=== PATIENT | male | born 1955 | race Caucasian/White ===

== ENCOUNTER 2020-03-05 18:42 | Emergency (ER) | payer MEDICAID, SELFPAY ==
[2020-03-05] VITALS (22 sets, daily range): BP systolic 115–243; BP diastolic 85–172; PULSE 107–160; RESP 12–37; O2SAT 86–99; BMI 25.1
--- NOTE | 2020-03-05 18:45 | CTR_ITS ---
PROCEDURE INFORMATION: Exam: CT Head Without Contrast Exam date and time: 03/05/2020 6:45 PM Age: 65 years old Clinical indication: Altered mental status/memory loss; Confusion or disorientation; Additional info: Symptoms of acute stroke TECHNIQUE: Imaging protocol: Computed tomography of the head without contrast. Radiation optimization: All CT scans at this facility use at least one of these dose optimization techniques: automated exposure control; mA and/or kV adjustment per patient size (includes targeted exams where dose is matched to clinical indication); or iterative reconstruction. Other technique: STROKE PROTOCOL was implemented. COMPARISON: CT head wo con* [id number] 12/03/2017 7:23 PM RADIATION DOSE METRICS: Total DLP (mGy-cm): 559.17 FINDINGS: Brain: There is focal encephalomalacia in the left insular cortex and in the left internal capsule region in keeping with chronic infarct which is not changed compared with 12/03/2017. There is no intracranial mass, hemorrhage, or edema. Ventricles: Normal. No ventriculomegaly. Bones/joints: Unremarkable. No acute fracture. Sinuses: Visualized sinuses are unremarkable. No fluid levels. Mastoid air cells: Visualized mastoid air cells are well aerated. Soft tissues: Unremarkable. CT/CT head wo con* [id number] IMPRESSION: 1. 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 2. No acute intracranial finding. ASSESSMENT: ASPECTS ([place] Stroke Program Early CT Score) is 10. Radiation Dose CTDIVOL = (mGy): DLP = 559.17 (mGy-cm)
--- NOTE | 2020-03-05 18:45 | ECG_ITS ---
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 Measurements Intervals [place] Rate: 145 P: [place]: -1 QRS: 72 QRSD: 95 T: -34 QT: 311 QTc: 484 Interpretive Statements ATRIAL FIBRILLATION WITH RAPID VENTRICULAR RESPONSE NONSPECIFIC ST & T-WAVE ABNORMALITY Compared to ECG 03/23/2019 05:52:33 No significant changes Electronically Signed On 03-05-2020 19:08:42 CDT by Isaiah Singleton M.D. [email or web address]
--- NOTE | 2020-03-05 18:51 | XR_ITS ---
WS: [id number] Portable AP upright chest, 03/05/2020, 1954 hours. Clinical Data: ams Comparison: Portable chest, 03/22/2019. Findings: Patchy opacity in the right upper lobe may indicate acute pneumonia. The lower lobes are cl ear. The pulmonary vascularity is minimally increased. The heart is slightly enlarged. No nodules, ma sses or effusions are seen. There is deformity of the distal right clavicle from an old injury. 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 XR/XR chest 1V [id number] Impression: 1. Patchy opacity in right upper lobe which could indicate acute pneumonia. 2. Mild pulmonary vascular congestion. 3. Cardiomegaly.
--- NOTE | 2020-03-05 18:59 | ED_ITS ---
HPI - Weakness General: Chief complaint: Neuro Symptoms/Deficit Stated complaint: Possible stroke Time Seen by Provider: 03/05/20 18:51 History of Present Illness: HPI Narrative: 65-year-old male with a history of stroke and atrial fibrillation. He presents with decreased responsiveness. Around 5 PM, his significant other left to go to the store. She returned between 6 and 630 to find him in the floor. He was not really talking or responding well. He was breathing and had a pulse. EMS was called. On arrival here he presents with a right-sided gaze left-sided weakness/paralysis, and tonic-clonic movements to the right upper extremity. He groans at times. He does not answer questions. His eyes are open. MD Complaint: focal weakness Onset (ago): hour(s) Duration: constant Location: LUE Migration: none Severity: severe Relieving factors: none Exacerbating factors: none Review of Systems General: Reports: ROS unobtainable due to medical condition Physical Exam Const: GENERAL APPEARANCE: ill appearing and diaphoretic HENMT: COMMON NORMALS: normocephalic, external ears normal and Normal external nose present HEAD & SCALP: normocephalic NOSE: Normal external nose present and No nasal discharge present EXTERNAL EAR: Yes external ears normal Eye: COMMON NORMALS: conjunctivae normal EYELID: eyelids normal CONJUNCTIVA: Yes conjunctivae normal Neck/C-Spine: GENERAL: No tracheal deviation Chest: COMMONS NORMALS: normal inspection of the chest CHEST: No tenderness Resp: COMMON NORMALS: clear to auscultation bilaterally EFFORT & INSPECTION: No tachypneic, No respiratory distress, No retractions, No uses accessory muscles and No tracheal deviation AUSCULTATION: clear to auscultation bilaterally, no rhonchi, no wheezes and lung sounds not diminished Cardio: RATE: tachycardic RHYTHM: abnormal rhythm irregularly irregular HEART SOUNDS: no murmurs PERIPHERAL PULSES: radial pulses present GI: INSPECTION: No abdominal distension AUSCULTATION: No Hyperactive bowel sounds present and No Hypoactive bowel sounds present PALPATION: No Rigid due to palpation PERCUSSION: no dullness to percussion and no tympanic to percussion Neuro: KARLA COMA SCALE: document GCS findings Karla coma scale eye opening: Spontaneous [place] coma scale verbal response: Sounds [place] coma scale motor response: Abnormal flexion Karla coma scale total score: 9 SENSORIUM/ORIENTATION: Yes obtunded SPEECH: Total aphasia GAIT: Yes Unable to assess gait SENSORY EXAM: Yes other (Left lower extremity and right lower extremity flex to noxious stimuli. Left upper extremity is flaccid even to painful stimuli. Right upper extremity withdraws.) MOTOR EXAM: Other motor observations present (Left upper extremity flaccid. Tonic-clonic movements in the right upper extremity.) Skin: COMMON NORMALS: no rashes or lesions noted GENERAL SKIN EXAM: no rashes or lesions noted Procedures Intubation Time out performed: No sedative: Etomidate Mg Given: 30 paralytic: Succinylcholine Mg Given: 200 Laryngoscope: Jose Assist Device Used: fiber optic device ET Tube Size: 7 ET Tube Uncuffed: No Tube Secured Depth (cm): 22 Tube Secured Location: lips Tube Placement Confirmation: visualized tube passing through cords, equal breath sounds bilaterally and confirmation by capnometry Patient Tolerated Procedure: well Intubation Complications: difficult intubation (Patient was a difficult airway, with a swollen larynx, and anterior positioning. First attempt failed, second attempt with video laryngoscope was successful. There was mild airway bleeding present.) Course Consultations: Consultation #1: Bret Neurology [facility] stroke team Consultation #2: Roger, neurology [facility] Consultation #3: Sharad, neuro ICU [facility] Vital Signs: Vital signs: Vital Signs Pulse Rate 98 03/06/20 00:59 Respiratory Rate 12 03/06/20 00:59 Blood Pressure 128/89 03/06/20 00:59 Pulse Oximetry 98 03/06/20 00:59 MDM - Weakness MDM Narrative: Medical decision making narrative: This is a 65-year-old male with a history of atrial fibrillation and stroke. He presents not responding to verbal stimuli, flexing and withdrawing to noxious stimuli. His left upper ex tremity is flaccid. His right upper extremity exhibits tonic-clonic motion. He has a right gaze preference that has been unrelenting. He withdraws with flexion to noxious stimuli of both lower extremities. By CT, he has old strokes in the left hemisphere of his brain, which his significant other says causes him mild right-sided weakness usually. He is exhibiting these tonic-clonic movements on the right, and has a right gaze preference consistent with possible seizure with a focus in the left brain. His left side that was flaccid, which is unexplained at this point. CT reveals no new stroke. No hemorrhage or mass. 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 No definite acute occlusion. Stroke alert was called from the field on this gentleman. We spoke with neurology at [facility] who covers our stroke service in the ER. The patient is on Eliquis, so TPA was not an option. It is believed more to be symptoms of seizure than stroke at this point. The seizure could have a focus around the old stroke in the left brain. Keppra was advised. He was loaded with 1 g, then another gram of Keppra. We do not have neurology services in this hospital at this point. This patient is requiring an ICU level of care. We talked to Dr. Duran from neurology at [facility] in [place], as well as Dr. Orourke in the neurotrauma ICU. He advised intubation in this patient for airway protection for transport. The patient was intubated, although with mild difficulty his larynx was swollen, only allowing a 7 tube. He is done well on the ventilator. He is on a Cardizem drip, with heart rate holding in the low 100s. His blood pressure currently is 120/90. He is on propofol, and again has been loaded with 2 g of Keppra for status epilepticus. He will go by air. Lab Data: Labs: Lab Results 03/05/20 03/05/20 03/05/20 Range/Units 18:57 18:57 18:57 WBC 10.5 H (4.0-10.0) 10^3/ uL RBC 5.16 (4.1-5.3) 10^6/u L Hgb 17.0 H (11.7-16.6) g/dL Hct 52.2 H (42.0-52.0) % MCV 101.2 H (80-94) fL MCH 32.9 (28.0-34.0) pg MCHC 32.6 (30.0-36.0) g/dL RDW 13.0 (12.1-15.1) % Plt Count 240 (130-400) 10^3/c mm MPV 11.6 H (7.4-10.4) fL Neut % (Auto) 73.2 % Lymph % (Auto) 18.8 % Waldo % (Auto) 5.5 % Eos % (Auto) 1.0 % Baso % (Auto) 0.9 % Neut # (Auto) 7.69 (1.8-7.7) 10^3/u L Lymph # (Auto) 2.0 (0.8-4.8) 10^3/u L Waldo # (Auto) 0.6 (0.2-0.9) 10^3/u L Eos # (Auto) 0.1 (0.0-0.8) 10^3/u L Baso # (Auto) 0.1 (0.0-0.1) 10^3/u L Nucleated RBC % (a uto) 0 % Nucleated RBCs # 0.0 /100WBC PT 14.30 H (10.5-13.3) SECO NDS INR 1.08 (0.8-1.2) APTT 29.3 (23.9-36.7) SECO NDS Specimen Type Sample Site ABG pH (7.35-7.45) ABG pCO2 (35-45) mmHg ABG pO2 (80.0-100.0) mmH g ABG HCO3 (22-26) mmol/L ABG Base Excess (-2.0-2.0) mmol/ L Lefty Test Hematocrit (42-52) % [employer] Vice President ID Sodium 134 L (136-145) mmol/L Potassium 4.5 (3.5-5.1) mmol/L Chloride 96 L (98-107) mmol/L Carbon Dioxide 23 (22-29) mmol/L Anion Gap 19.5 H (5-19) BUN 10 (8-23) mg/dL Creatinine 0.8 (0.7-1.2) mg/dL GFR Calculation 97.0 (90-130) mL/min Glucose 264 H (65-115) mg/dL POC Glucose (70-110) mg/dL Calculated Osmolal ity 283 L (285-295) mOsm/k g Calcium 9.2 (8.5-10.5) mg/dL Magnesium 1.8 (1.7-2.3) mg/dL Total Bilirubin 0.3 (0.15-1.2) mg/dL AST 120 H (0-40) U/L ALT 129 H (0-41) U/L Alkaline Phosphata se 116 (40-130) IU/L Creatine Kinase 55 (39-308) U/L Troponin T Baselin e (0-15) ng/L Troponin T 120 Min pooja (0-15) ng/L Delta Troponin T (0-10) ABS# Total Protein 7.5 (6.6-8.7) g/dL Albumin 3.8 (3.5-5.2) g/dL Globulin 3.7 (1.3-4.6) g/dL Urine Color (Yellow) Urine Appearance (CLEAR) Urine pH (5-7) Ur Specific Gravit y (1.005-1.030) Urine Protein (Negative) Urine Glucose (UA) (Normal) Urine Ketones (Negative) Urine Blood (Negative) Urine Nitrate (Negative) Urine Bilirubin (NEGATIVE) Urine Urobilinogen (Negative) mg/dL Ur Leukocyte Aide ase (Negative) Urine RBC (0-2) /hpf Urine WBC (0-5) /hpf Ur Squamous Epith Cells (0-5) Ur Transition Epit h Cell /hpf Amorphous Sediment Urine Bacteria (NONE) Hyaline Casts Urine Mucus Urine Opiates Scre en (Negative) ng/mL Ur Barbiturates Sc reen (Negative) ng/mL Ur Phencyclidine S crn (Negative) ng/mL Ur Amphetamines Sc reen (Negative) ng/mL U Benzodiazepines Scrn (Negative) ng/mL Urine Cocaine Scre en (Negative) ng/mL U Marijuana (THC) Screen (Negative) ng/mL 03/05/20 03/05/20 03/05/20 Range/Units 18:57 19:05 19:45 WBC (4.0-10.0) 10^3/ uL RBC (4.1-5.3) 10^6/u L Hgb (11.7-16.6) g/dL Hct (42.0-52.0) % MCV (80-94) fL MCH (28.0-34.0) pg MCHC (30.0-36.0) g/dL RDW (12.1-15.1) % Plt Count (130-400) 10^3/c mm MPV (7.4-10.4) fL Neut % (Auto) % Lymph % (Auto) % Waldo % (Auto) % Eos % (Auto) % Baso % (Auto) % Neut # (Auto) (1.8-7.7) 10^3/u L Lymph # (Auto) (0.8-4.8) 10^3/u L Waldo # (Auto) (0.2-0.9) 10^3/u L Eos # (Auto) (0.0-0.8) 10^3/u L Baso # (Auto) (0.0-0.1) 10^3/u L Nucleated RBC % (a uto) % Nucleated RBCs # /100WBC PT (10.5-13.3) SECO NDS INR (0.8-1.2) APTT (23.9-36.7) SECO NDS Specimen Type Arterial Sample Site Radial, left ABG pH 7.45 (7.35-7.45) ABG pCO2 33.3 L (35-45) mmHg ABG pO2 58.3 L (80.0-100.0) mmH g ABG HCO3 22.9 (22-26) mmol/L ABG Base Excess -0.3 (-2.0-2.0) mmol/ L Lefty Test Pos Hematocrit 53.6 H (42-52) % [employer] Vice President ID ellpe Sodium (136-145) mmol/L Potassium (3.5-5.1) mmol/L Chloride (98-107) mmol/L Carbon Dioxide (22-29) mmol/L Anion Gap (5-19) BUN (8-23) mg/dL Creatinine (0.7-1.2) mg/dL GFR Calculation (90-130) mL/min Glucose (65-115) mg/dL POC Glucose 228 (70-110) mg/dL Calculated Osmolal ity (285-295) mOsm/k g Calcium (8.5-10.5) mg/dL Magnesium (1.7-2.3) mg/dL Total Bilirubin (0.15-1.2) mg/dL AST (0-40) U/L ALT (0-41) U/L Alkaline Phosphata se (40-130) IU/L Creatine Kinase (39-308) U/L Troponin T Baselin e 9 (0-15) ng/L Troponin T 120 Min pooja (0-15) ng/L Delta Troponin T (0-10) ABS# Total Protein (6.6-8.7) g/dL Albumin (3.5-5.2) g/dL Globulin (1.3-4.6) g/dL Urine Color (Yellow) Urine Appearance (CLEAR) Urine pH (5-7) Ur Specific Gravit y (1.005-1.030) Urine Protein (Negative) Urine Glucose (UA) (Normal) Urine Ketones (Negative) Urine Blood (Negative) Urine Nitrate (Negative) Urine Bilirubin (NEGATIVE) Urine Urobilinogen (Negative) mg/dL Ur Leukocyte Aide ase (Negative) Urine RBC (0-2) /hpf Urine WBC (0-5) /hpf Ur Squamous Epith Cells (0-5) Ur Transition Epit h Cell /hpf Amorphous Sediment Urine Bacteria (NONE) Hyaline Casts Urine Mucus Urine Opiates Scre en (Negative) ng/mL Ur Barbiturates Sc reen (Negative) ng/mL Ur Phencyclidine S crn (Negative) ng/mL Ur Amphetamines Sc reen (Negative) ng/mL U Benzodiazepines Scrn (Negative) ng/mL Urine Cocaine Scre en (Negative) ng/mL U Marijuana (THC) Screen (Negative) ng/mL 03/05/20 03/05/20 03/05/20 Range/Units 20:05 20:05 21:00 WBC (4.0-10.0) 10^3/ uL RBC (4.1-5.3) 10^6/u L Hgb (11.7-16.6) g/dL Hct (42.0-52.0) % MCV (80-94) fL MCH (28.0-34.0) pg MCHC (30.0-36.0) g/dL RDW (12.1-15.1) % Plt Count (130-400) 10^3/c mm MPV (7.4-10.4) fL Neut % (Auto) % Lymph % (Auto) % Waldo % (Auto) % Eos % (Auto) % Baso % (Auto) % Neut # (Auto) (1.8-7.7) 10^3/u L Lymph # (Auto) (0.8-4.8) 10^3/u L Waldo # (Auto) (0.2-0.9) 10^3/u L Eos # (Auto) (0.0-0.8) 10^3/u L Baso # (Auto) (0.0-0.1) 10^3/u L Nucleated RBC % (a uto) % Nucleated RBCs # /100WBC PT (10.5-13.3) SECO NDS INR (0.8-1.2) APTT (23.9-36.7) SECO NDS Specimen Type Sample Site ABG pH (7.35-7.45) ABG pCO2 (35-45) mmHg ABG pO2 (80.0-100.0) mmH g ABG HCO3 (22-26) mmol/L ABG Base Excess (-2.0-2.0) mmol/ L Lefty Test Hematocrit (42-52) % [employer] Vice President ID Sodium (136-145) mmol/L Potassium (3.5-5.1) mmol/L Chloride (98-107) mmol/L Carbon Dioxide (22-29) mmol/L Anion Gap (5-19) BUN (8-23) mg/dL Creatinine (0.7-1.2) mg/dL GFR Calculation (90-130) mL/min Glucose (65-115) mg/dL POC Glucose (70-110) mg/dL Calculated Osmolal ity (285-295) mOsm/k g Calcium (8.5-10.5) mg/dL Magnesium (1.7-2.3) mg/dL Total Bilirubin (0.15-1.2) mg/dL AST (0-40) U/L ALT (0-41) U/L Alkaline Phosphata se (40-130) IU/L Creatine Kinase (39-308) U/L Troponin T Baselin e (0-15) ng/L Troponin T 120 Min pooja 7.16 (0-15) ng/L Delta Troponin T -1.84 L (0-10) ABS# Total Protein (6.6-8.7) g/dL Albumin (3.5-5.2) g/dL Globulin (1.3-4.6) g/dL Urine Color Yellow (Yellow) Urine Appearance Hazy A (CLEAR) Urine pH 5 (5-7) Ur Specific Gravit y 1.010 (1.005-1.030) Urine Protein 1+ H (Negative) Urine Glucose (UA) 4+ H (Normal) Urine Ketones 1+ H (Negative) Urine Blood 3+ H (Negative) Urine Nitrate Negative (Negative) Urine Bilirubin Neg (NEGATIVE) Urine Urobilinogen 1 H (Negative) mg/dL Ur Leukocyte Aide ase Negative (Negative) Urine RBC 25-40 H (0-2) /hpf Urine WBC 0-4 H (0-5) /hpf Ur Squamous Epith Cells 5-10 H (0-5) Ur Transition Epit h Cell 0-4 /hpf Amorphous Sediment Not Reportable Urine Bacteria 1+ H (NONE) Hyaline Casts 15-25 H Urine Mucus 2+ Urine Opiates Scre en Negative (Negative) ng/mL Ur Barbiturates Sc reen Negative (Negative) ng/mL Ur Phencyclidine S crn Negative (Negative) ng/mL Ur Amphetamines Sc reen Negative (Negative) ng/mL U Benzodiazepines Scrn Positive H (Negative) ng/mL Urine Cocaine Scre en Negative (Negative) ng/mL U Marijuana (THC) Screen Negative (Negative) ng/mL Critical Care Time Critical Care Time: Critical Care Time: Yes Total Critical Care Time: 60 Attestation: This case had a high probability of a clinically significant, sudden, or life threatening deterioration of this patient's condition which required my full and direct attention, intervention and personal management. Discharge Plan Discharge Prescriptions: No Action carvedilol 12.5 mg tablet RF: 0 Acid Filter Press Tender Head (omeprazole) 20 mg 20 mg PO DAILY RF: 0 DOK 100 mg 100 mg PO BID RF: 0 ProAir HFA 90 mcg 2 puff inhalation DIRECTED RF: 0 Flovent HFA 220 mcg 2 puff inhalation DIRECTED RF: 0 metoprolol tartrate 100 mg 100 mg PO BID RF: 0 metformin 500 mg 500 mg PO DAILY RF: 0 tamsulosin 0.4 mg capsule 0.4 mg PO DAILY RF: 0 digoxin 250 mcg (0.25 mg) Tablet 250 mcg PO DAILY RF: 0 Eliquis 5 mg Tablet 5 mg PO BID RF: 0 Referrals: Jose Enrique Salgado [Primary Care Provider] - Discharge Date/Time: 03/06/20 01:09 Coding Level of Care Code ED And Rescue Fire Fighter Crash Fire for Eltong Fwd Exam Comprehensive
[2020-03-05 19:02] LABS: Basophils # 0.1 10^3/uL (0.0-0.1); Basophils % 0.9 %; Eosinophils # 0.1 10^3/uL (0.0-0.8); Hematocrit 52.2 % (42.0-52.0); Lymphocytes % 18.8 %; Mean Corpuscular HGB Conc 32.6 g/dL (30.0-36.0); Mean Corpuscular Hemoglobin 32.9 pg (28.0-34.0); Mean Corpuscular Volume 101.2 fL (80-94); Mean Platelet Volume 11.6 fL (7.4-10.4); Monocytes # 0.6 10^3/uL (0.2-0.9); Monocytes % 5.5 %; Neutrophils # 7.69 10^3/uL (1.8-7.7); Neutrophils % 73.2 %; Nucleated Red Blood Cells % 0 %; Platelet Count 240 10^3/cmm (130-400); Red Blood Count 5.16 10^6/uL (4.1-5.3); White Blood Count 10.5 10^3/uL (4.0-10.0)
[2020-03-05 19:07] LABS: Glucose Point of Care 228 mg/dL (70-110)
[2020-03-05 19:10] LABS: INR 1.08 (0.8-1.2)
[2020-03-05 19:11] LABS: Partial Thromboplastin Time 29.3 SECONDS (23.9-36.7)
--- NOTE | 2020-03-05 19:17 | CTR_ITS ---
PROCEDURE INFORMATION: Exam: CT Angiography Head With Contrast Exam date and time: 03/05/2020 7:19 PM Age: 65 years old Clinical indication: Other: AMS TECHNIQUE: Imaging protocol: Computed tomography angiography of the head with intravenous contrast. 3D rendering: MIP and/or 3D reconstructed images were created by the technologist. Radiation optimization: All CT scans at this facility use at least one of these dose optimization techniques: automated exposure control; mA and/or kV adjustment per patient size (includes targeted exams where dose is matched to clinical indication); or iterative reconstruction. Contrast material: OMNI 350; Contrast volume: 95 ml; Contrast route: INTRAVENOUS (IV); COMPARISON: CT head wo con* [id number] 03/05/2020 6:41 PM RADIATION DOSE METRICS: Total DLP (mGy-cm): 5449.53 FINDINGS: Anterior cerebral arteries: No occlusion or significant stenosis. No aneurysm. Right internal carotid artery: There is atherosclerotic plaque in the cavernous internal carotid artery on the right with occlusion of the right cavernous carotid artery and reconstitution of the supraclinoid right internal carotid artery. The distal right internal carotid artery shows very dense opacification and smaller diameter, probably on the basis of restricted flow. These changes are of uncertain age in acuity, possibly chronic but this cannot be said with certainty without prior examinations for comparison. Right middle cerebral artery: No occlusion or significant stenosis. No aneurysm. Right posterior cerebral artery: There may be some mild stenosis in the distal right P2 posterior cerebral artery segment but no occlusion. Right vertebral artery: There is some mild focal atherosclerotic plaque in the mid right V4 segment without significant stenosis. Left internal carotid artery: Intracranial segment is patent with no significant stenosis or occlusion. No aneurysm. Left middle cerebral artery: No occlusion or significant stenosis. No aneurysm. Left posterior cerebral artery: No occlusion or significant stenosis. No aneurysm. Left vertebral artery: There is some focal atherosclerotic plaque in the mid left V4 segment without significant stenosis. Basilar artery: No occlusion or significant stenosis. No aneurysm. 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 COMMENTS: THIS REPORT CONTAINS FINDINGS THAT MAY BE CRITICAL TO PATIENT CARE. The findings were verbally communicated via telephone conference with Deo Onofre at 8:51 PM CDT on 03/05/2020. The findings were acknowledged and understood. PROCEDURE INFORMATION: Exam: CT Angiography Neck With Contrast Exam date and time: 03/05/2020 7:19 PM Age: 65 years old Clinical indication: Other: AMS TECHNIQUE: Imaging protocol: Computed tomography angiography of the neck with intravenous contrast. 3D rendering: MIP and/or 3D reconstructed images were created by the technologist. Radiation optimization: All CT scans at this facility use at least one of these dose optimization techniques: automated exposure control; mA and/or kV adjustment per patient size (includes targeted exams where dose is matched to clinical indication); or iterative reconstruction. Contrast material: OMNI 350; Contrast volume: 95 ml; Contrast route: INTRAVENOUS (IV); COMPARISON: CT head wo con* [id number] 03/05/2020 6:41 PM RADIATION DOSE METRICS: Total DLP (mGy-cm): 5449.53 FINDINGS: Right common carotid artery: No stenosis. No dissection or occlusion. Right internal carotid artery: Mid and distal right ICA is of smaller diameter than usual and shows denser contrast enhancement. This is likely due to restricted flow from distal stenosis or occlusion. Please see the report of CT angio of the brain above. Right external carotid artery: No occlusion or stenosis of the origin. Right vertebral artery: No stenosis. No dissection or occlusion. Left common carotid artery: No stenosis. No dissection or occlusion. Left internal carotid artery: There is some focal calcified and noncalcified plaque at the left carotid bifurcation but without measurable stenosis according to the NASCET criteria. Left external carotid artery: No occlusion or stenosis of the origin. Left vertebral artery: No stenosis. No dissection or occlusion. Bones/joints: No acute fracture. Soft tissues: Normal. No significant soft tissue swelling. CT/CT angio headneck* [id number] IMPRESSION: 1. Evidence of restricted flow in the right internal carotid artery. 2. No evidence of hemodynamically significant stenosis in the neck REFERENCES: NASCET CRITERIA. The degree of internal carotid artery stenosis is based on NASCET criteria. Normal is no stenosis. Mild is less than 50% stenosis. Moderate is 50-69% stenosis. Severe is 70% to 99% stenosis. Total occlusion is no detectable patent lumen. Radiation Dose CTDIVOL = (mGy): DLP = 5449.53~5449.53 (mGy-cm)
[2020-03-05 19:24] LABS: Alanine Aminotransferase 129 U/L (0-41); Albumin Level 3.8 g/dL (3.5-5.2); Alkaline Phosphatase 116 IU/L (40-130); Blood Urea Nitrogen 10 mg/dL (8-23); Calcium 9.2 mg/dL (8.5-10.5); Carbon Dioxide 23 mmol/L (22-29); Chloride 96 mmol/L (98-107); Creatine Phosphokinase 55 U/L (39-308); Globulin 3.7 g/dL (1.3-4.6); Glucose 264 mg/dL (65-115); Magnesium 1.8 mg/dL (1.7-2.3); Osmolality Calculated 283 mOsm/kg (285-295); Sodium 134 mmol/L (136-145); Total Bilirubin 0.3 mg/dL (0.15-1.2); Total Protein 7.5 g/dL (6.6-8.7); Troponin(5th) Baseline 9 ng/L (0-15)
[2020-03-05 19:33] LABS: Anion Gap 19.5 (5-19); Potassium 4.5 mmol/L (3.5-5.1)
[2020-03-05 19:34] LABS: Aspartate Amino Transferase 120 U/L (0-40)
[2020-03-05] MEDS: LORazepam 2 mg/mL INJ 1 mL IVP (19:45)
[2020-03-05] MEDS: sodium chloride 0.9% 1,000 ML 999 ML IV (19:45)
[2020-03-05 19:51] LABS: ABG PCO2 33.3 mmHg (35-45); ABG PH Result 7.45 (7.35-7.45); Arterial Blood Gas Hematocrit 53.6 % (42-52); Base Excess ABG -0.3 mmol/L (-2.0-2.0); Blood Gas Allen Test Pos; Blood Gas Sample Site Radial, left; Blood Gas Sample Type Arterial; HCO3 ABG 22.9 mmol/L (22-26); PO2 ABG 58.3 mmHg (80.0-100.0)
[2020-03-05] MEDS: iohexol 350 mg/mL 100 mL Btl IV (20:06)
[2020-03-05 20:37] LABS: Add Urine Microscopic? YES; Bilirubin Urine Neg (NEGATIVE); Blood Urine 3+ (Negative); Glucose Urine UA 4+ (Normal); Ketones Urine 1+ (Negative); Leukocyte Esterase Urine Negative (Negative); Nitrate Urine Negative (Negative); Protein Urine 1+ (Negative); Urine Appearance Hazy (CLEAR); Urine Color Yellow (Yellow); Urobilinogen Urine 1 mg/dL (Negative); pH Urine 5 (5-7)
[2020-03-05 20:38] LABS: Hyaline Casts Urine 15-25
[2020-03-05 20:39] LABS: Amphetamines Screen Urine Negative (Negative); Bacteria Urine 1+; Barbiturates Screen Urine Negative (Negative); Benzodiazepines Screen Urine Positive (Negative); Cocaine Screen Urine Negative (Negative); Mucus Urine 2+; Opiate Screen Urine Negative (Negative); PCP Screen Urine Negative (Negative); RBC Urine 25-40 /hpf (0-2); THC Screen Urine Negative (Negative); Transitional Epi Cells Urine 0-4 /hpf; WBC Urine 0-4 /hpf (0-5)
[2020-03-05 20:40] LABS: Add Urine Culture? Yes
--- NOTE | 2020-03-05 20:51 | ECG_ITS ---
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 Measurements Intervals [place] Rate: 125 P: [place]: -1 QRS: 80 QRSD: 93 T: 14 QT: 335 QTc: 483 Interpretive Statements ATRIAL FIBRILLATION WITH RAPID VENTRICULAR RESPONSE NONSPECIFIC ST & T-WAVE ABNORMALITY ABNORMAL RHYTHM ECG Compared to ECG 03/05/2020 19:03:00 No significant changes Electronically Signed On 03-06-2020 16:41:56 CDT by Isaiah Singleton M.D. [email or web address]
[2020-03-05 21:24] LABS: Troponin 5 2HR 7.16 ng/L (0-15)
[2020-03-05 21:26] LABS: Troponin 5 2HR Delta -1.84 ABS# (0-10)
[2020-03-05] MEDS: succinylcholine 20 mg/mL SDV 10mL 200 MG IVP (22:16)
[2020-03-05] MEDS: midazolam 1 mg/mL INJ 2 mL 2 MG IVP (22:20)
[2020-03-05] MEDS: propofol 1,000 MG/100 ML INJ 4.9 MG IV (23:02)
[2020-03-05] MEDS: propofol 1,000 MG/100 ML INJ 10 MG (23:04)
--- NOTE | 2020-03-05 23:04 | XR_ITS ---
WS: [id number] Portable AP upright chest, 03/05/2020, 2303 hours. Clinical Data: ET tube placement Comparison: Portable chest, 03/05/2020, 1954 hours. Findings: The endotracheal tube is above the tyler. There is a nasogastric tube and the distal porti on appears to end in the distal esophagus, not within the stomach. Again there is patchy opacity in t he right upper lobe. There is now minimal opacity over the surface of the left diaphragm. No pneumoth orax is seen. The heart size remains normal. The pulmonary vascularity is not increased. No pneumonia or pneumothorax is seen. XR/XR chest 1V portable [id number] Impression: 1. Satisfactory placement of endotracheal tube. 2. Nasogastric tube ends in distal esophagus. 3. Minimal patchy opacity in right upper lobe and development of opacity over t he left diaphragm.
[2020-03-05] MEDS: succinylcholine 20 mg/mL SDV 10mL 100 MG IV (23:10)
[2020-03-05] MEDS: fentaNYL 50 mcg/mL INJ 2mL 100 MCG IVP (23:18)
[2020-03-06] VITALS: BP 118/89; PULSE 100; RESP 13; O2SAT 97
[2020-03-06 00:15] VITALS: BP 126/88; O2SAT 98
[2020-03-06 00:59] VITALS: BP 128/89; PULSE 98; RESP 12; O2SAT 98
[2020-03-07 18:47] LABS: Blood Gas CCRB Time 1850
== END 2020-03-06 01:09 ==
LOC: ER 19:22
PROVIDERS: Emergency Medicine; Emergency Provider Emergency Medicine; PCP Family Medicine
DX: R53.1 Weakness (principal); Z86.73 Personal history of transient ischemic attack (TIA), and cerebral infarction without residual deficits; I48.91 Unspecified atrial fibrillation; Z79.01 Long term (current) use of anticoagulants
CPT/HCPCS: 12345; 31500; 36416; 36600; 51702; 70450; 70496; 70498; 71045; 80053; 80306; 81001; 81003; 82550; 82803; 82962; 83735; 84484; 85025; 85610; 85730; 87086; 93005; 94002; 94799; 96360; 96365; 96366; 96367; 96368; 96375; 99284; 99291; J0330; J1953; J2060; J2250; J2704; J3010; J3490; J7030; Q9967